=== PATIENT | female | born 1930 | race Caucasian/White ===

== ENCOUNTER 2017-06-12 02:39 | Emergency (ER) | payer MEDICARE ==
[~2017-06-12] VITALS: Ht 154.9 cm; Wt 49.0 kg
[~2017-06-12 02:39] MED LIST: AC325T PO; ACET-789 PO; ACID1TAB5 PO; ALN10T PO; ATRV10T PO; Aspirin PO; CALC-656 PO; CALC-80 PO; CALC-913 PO; CALC600T12 PO; CYCL5TAB PO; Diphenhydramine Hcl IV; ENXP30I.3 SC; FENT-64 TD; FLUT16SP22; FNT50TD TD; GABA-486 PO; HYDR-3820 PO; MELO-198 PO; METH4TAB PO; METR500T21; METR500T21 PO; Multivitamins/Minerals Therap PO; NF-ROP5T PO; NITR-65 PO; ONDA2VIA IV; ONDA4TAB10; ONDA4TAB11 PO; ONDAN4ODT PO; ORPH100T PO; Oxycodone Hcl/Acetaminophen PO; PANT40TA2 PO; PANT40TA3 PO; PRD10T PO; PROP40TA5 PO; ROPI1TAB PO; ROPI3TAB PO; ROPI5TAB; ROPI5TAB PO; SENN1TAB76 PO; SUCR1TAB36 PO; SULF1TAB35 PO; Sodium Chloride IV; TIMO1DRO4 OP; TIMO5DRO5 OP; TIMO5DRO5 OU; TIZA2CAP9 PO; TRAM50TA2 PO; TRM50T PO
[2017-06-12 02:55] LABS: BASOPHILS % (AUTO) 1 % (0-10); EOSINOPHILS # (AUTO) 0.4 10^3/uL (0.0-0.3); EOSINOPHILS % (AUTO) 5 % (0-10); LYMPHOCYTES # (AUTO) 2.2 X 10^3 (1.0-4.0); LYMPHOCYTES % (AUTO) 33 % (12-44); MEAN CORPUSCULAR HEMOGLOBIN 29 PG (25-34); MEAN CORPUSCULAR HGB CONC 34 G/DL (32-36); MEAN CORPUSCULAR VOLUME 86 FL (80-99); MEAN PLATELET VOLUME 8.9 FL (7.4-10.4); MONOCYTES # (AUTO) 0.9 X 10^3 (0.0-1.0); MONOCYTES % (AUTO) 13 % (0-12); NEUTROPHILS # (AUTO) 3.3 X 10^3 (1.8-7.8); NEUTROPHILS % (AUTO) 49 % (42-75); PLATELET COUNT 306 10^3/uL (130-400); RED BLOOD COUNT 4.12 10^6/uL (4.35-5.85); RED CELL DISTRIBUTION WIDTH 13.2 % (10.0-14.5); WHITE BLOOD COUNT 6.8 10^3/uL (4.3-11.0)
[2017-06-12] MEDS ORDERED: ORPHENADRINE 60 MG/2 ML (NORFLEX) AMP IVP ONE (03:00)
[2017-06-12] MEDS ORDERED: ORPHENADRINE 60 MG/2 ML (NORFLEX) AMP IM ONE (03:00)
[2017-06-12] MEDS ORDERED: KETOROLAC 30 MG/ML VIAL IVP ONE (03:00)
[2017-06-12 03:11] LABS: ANION GAP 11 MMOL/L (5-14); BLOOD UREA NITROGEN 10 MG/DL (7-18); BUN/CREATININE RATIO 13; CALCIUM 9.1 MG/DL (8.5-10.1); CARBON DIOXIDE 22 MMOL/L (21-32); CHLORIDE 105 MMOL/L (98-107); GFR ESTIMATED > 60; GLUCOSE 98 MG/DL (70-105); POTASSIUM 3.8 MMOL/L (3.6-5.0); SODIUM 138 MMOL/L (135-145)
[2017-06-12] MEDS ORDERED: CYCL5TAB PO (03:28)
--- NOTE | 2017-06-12 03:29 | ED Headache ---
General Chief Complaint: Head/Cervical Problems Stated Complaint: HEADACHE Nursing Triage Note: pt reports she woke up with severe head et neck pain. she was unable to bear the pain. Nursing Sepsis Screen: No Definite Risk Source: patient, EMS Exam Limitations: no limitations Allergies and Home Medications Allergies Coded Allergies: No Known Drug Allergies (Unverified , 05/05/16) Home Medications Fentanyl 1 Each Patch.td72, 25 MCG TD Q72H, #10 Prescribed by: NEY JARAMILLO on 07/02/16 1124 Pantoprazole Sodium 40 Mg Tablet.dr, 40 MG PO DAILY, (Reported) Propranolol HCl 40 Mg Tablet, 40 MG PO DAILY, (Reported) Ropinirole HCl 5 Mg Tablet, 5 MG PO QID, (Reported) Timolol Maleate 5 Ml Drops, 1 DROP OU BID, (Reported) Past Pvbamcu-Ttarwz-Ealmze Hx Patient Social History Alcohol Use: Occasionally Uses Alcohol Beverage of Choice: Wine Recreational Drug Use: No Smoking Status: Never a Smoker Recent Foreign Travel: No Contact w/Someone Who Travel: No Recent Infectious Disease Expo: No Recent Hopitalizations: Yes Physical Abuse: No Sexual Abuse: No Mistreated: No Fear: No Immunizations Up To Date Tetanus Booster (TDap): Unknown PED Vaccines UTD: Yes Date of Pneumonia Vaccine: Mar 27, 2011 Date of Influenza Vaccine: May 29, 2017 Seasonal Allergies Seasonal Allergies: No Surgeries History of Surgeries: Yes (BILAT ROTATOR CUFF REPAIR, TRIGGER FINGER RELEASE, RT KNEE) Surgeries: Joint Replacement Respiratory History of Respiratory Disorde: Yes Respiratory Disorders: Chronic Bronchitis Currently Using CPAP: No Currently Using BIPAP: No Cardiovascular History of Cardiac Disorders: Yes (TAKES PROPRANOLOL FOR PARKINSONS) Cardiac Disorders: Chronic Edema/Swelling, High Cholesterol Neurological History of Neurological Disord: Yes (POST-POLIO SYNDROME WITH LT SIDED WEAKNESS ) Neurological Disorders: Parkinson's Disease Reproductive System Hx Reproductive Disorders: No Sexually Transmitted Disease: No HIV/AIDS: No Female Reproductive Disorders: Denies Genitourinary Genitourinary Disorders: Bladder Infection Gastrointestinal History of Gastrointestinal Di: No Gastrointestinal Disorders: Gastroesophageal Reflux Musculoskeletal History of Musculoskeletal Dis: Yes (SPINAL STENOSIS) Musculoskeletal Disorders: Degenerate Disk Disease, Osteoporosis, Arthritis, Scoliosis, Chronic Back Pain Endocrine History of Endocrine Disorders: No HEENT HEENT Disorders: Cataract, Glaucoma Loss of Vision: Bilateral Hearing Impairment: Denies Cancer History of Cancer: No Psychosocial History of Psychiatric Problem: Yes Behavioral Health Disorders: Depression Suicide Risk Score: 0 Integumentary History of Skin or Integumenta: No Skin/Integumentary Disorders: Recent Skin Changes Blood Transfusions History of Blood Disorders: No (HX ANEMIA) Adverse Reaction to a Blood Tr: No (N/A) Family Medical History Significant Family History: No Pertinent Family Hx Family Medial History: Osteoporosis 19 MOTHER Physical Exam Vital Signs Vital Sign - Last 12Hours 06/12/17 02:43 Temp 98.4 Pulse 75 Resp 16 B/P (MAP) 196/98 Capillary Refill : Less Than 3 Seconds Progress/Results/Core Measures Results/Orders Lab Results Laboratory Tests Test 06/12/17 02:49 Range/Units White Blood Count 6.8 4.3-11.0 10^3/uL Red Blood Count 4.12 L 4.35-5.85 10^6/uL Hemoglobin 12.1 11.5-16.0 G/DL Hematocrit 35 35-52 % Mean Corpuscular Volume 86 80-99 FL Mean Corpuscular Hemoglobin 29 25-34 PG Mean Corpuscular Hemoglobin Concent 34 32-36 G/DL Red Cell Distribution Width 13.2 10.0-14.5 % Platelet Count 306 130-400 10^3/uL Mean Platelet Volume 8.9 7.4-10.4 FL Neutrophils (%) (Auto) 49 42-75 % Lymphocytes (%) (Auto) 33 12-44 % Monocytes (%) (Auto) 13 H 0-12 % Eosinophils (%) (Auto) 5 0-10 % Basophils (%) (Auto) 1 0-10 % Neutrophils # (Auto) 3.3 1.8-7.8 X 10^3 Lymphocytes # (Auto) 2.2 1.0-4.0 X 10^3 Monocytes # (Auto) 0.9 0.0-1.0 X 10^3 Eosinophils # (Auto) 0.4 H 0.0-0.3 10^3/uL Basophils # (Auto) 0.0 0.0-0.1 10^3/uL Sodium Level 138 135-145 MMOL/L Potassium Level 3.8 3.6-5.0 MMOL/L Chloride Level 105 98-107 MMOL/L Carbon Dioxide Level 22 21-32 MMOL/L Anion Gap 11 5-14 MMOL/L Blood Urea Nitrogen 10 7-18 MG/DL Creatinine 0.80 0.60-1.30 MG/DL Estimat Glomerular Filtration Rate > 60 BUN/Creatinine Ratio 13 Glucose Level 98 70-105 MG/DL Calcium Level 9.1 8.5-10.1 MG/DL My Orders Orders - SHAYAN DHALIWAL MD Ketorolac Injection (Toradol Injection) (06/12/17 03:00) Orphenadrine Injection (Norflex Injectio (06/12/17 03:00) Basic Metabolic Panel (06/12/17 02:46) Cbc With Automated Diff (06/12/17 02:46) Orphenadrine Injection (Norflex Injectio (06/12/17 03:00) Saline Lock/Iv-Start (06/12/17 03:21) Medications Given in ED Current Medications Medications Dose Ordered Sig/Uday Route Start Time Stop Time Status Last Admin Dose Admin Ketorolac Tromethamine 30 mg ONCE ONCE IVP 06/12/17 03:00 06/12/17 03:01 DC 06/12/17 03:00 30 MG Orphenadrine Citrate 60 mg ONCE ONCE IVP 06/12/17 03:00 06/12/17 03:01 DC 06/12/17 03:00 60 MG Vital Signs/I&O Vital Sign - Last 12Hours 06/12/17 02:43 Temp 98.4 Pulse 75 Resp 16 B/P (MAP) 196/98 Blood Pressure Mean: 130 Departure Impression Impression: Primary Impression: Muscle spasms of neck Disposition: 01 HOME, SELF-CARE Condition: Improved Departure-Patient Inst. Decision time for Depature: 03:25 Referrals: VICKIE AYALA MD (PCP/Family) Primary Care Physician Patient Instructions: Muscle Spasms (DC) Add. Discharge Instructions: You may take ibuprofen up to 400 mg 3 times daily for pain. Add Tylenol ( acetaminophen) up to 650 mg every 6 hours as needed for additional pain relief. You may use cyclobenzaprine (muscle relaxer) as prescribed for spasms. Use with caution as it may cause drowsiness. Return to care if symptoms worsen or return to your primary care provider if not improving as expected. Gentle heat on your neck may be helpful in relaxing your spasmed muscles. All discharge instructions reviewed with patient and/or family. Voiced understanding. Scripts Cyclobenzaprine HCl (Cyclobenzaprine HCl) 5 Mg Tablet 5 MG PO TIDAC, #10 TAB Prov: SHAYAN DHALIWAL MD 06/12/17 SHAYAN DHALIWAL MD Jun 12, 2017 03:29
[2017-06-12 04:09] VITALS: BP 150/81
== END 2017-06-12 04:07 | disposition home or self-care (01) ==
LOC: EDUNIT# 02:39 → ER 02:42
DX: M62.838 Other muscle spasm (principal); F32.9 Major depressive disorder, single episode, unspecified; M48.00 Spinal stenosis, site unspecified; K21.9 Gastro-esophageal reflux disease without esophagitis; G25.81 Restless legs syndrome; E78.00 Pure hypercholesterolemia, unspecified
CPT/HCPCS: 36415; 80048; 85025

== ENCOUNTER 2017-09-25 08:28 | Outpatient (CLI) | payer MEDICARE ==
[~2017-09-25] VITALS: Ht 154.9 cm; Wt 44.5 kg
[2017-09-25] MEDS ORDERED: CALC600T12 PO (08:41)
[2017-09-25] MEDS ORDERED: FENT1PAT8 TD (08:41)
[2017-09-25 08:46] VITALS: BP 141/69
--- NOTE | 2017-09-25 10:04 | Diagnostic Imaging Report ---
INDICATION: Preop for vaginal prolapse surgery. TIME OF EXAM: 9:26 AM COMPARISON: Correlation is made with prior study 07/01/2016. FINDINGS: There is right convexity scoliotic curvature to the lower thoracic and upper lumbar spine. The heart size is stable. The lungs are clear. No infiltrates are identified. No effusion or pneumothorax is seen. Suture anchor overlies the right humeral heads from prior rotator cuff surgery. IMPRESSION: No acute cardiopulmonary process is detected. Dictated by: Dictated on workstation # [id number]
== END 2017-09-25 10:58 ==
LOC: PREOP 08:28
PROVIDERS: ATTEND Obstetrics & Gynecology
DX: Z01.811 Encounter for preprocedural respiratory examination (principal); Z01.810 Encounter for preprocedural cardiovascular examination; Z01.818 Encounter for other preprocedural examination; Z11.2 Encounter for screening for other bacterial diseases; N81.2 Incomplete uterovaginal prolapse
CPT/HCPCS: 71046; 87081

== ENCOUNTER 2017-09-29 07:00 | Day surgery (SDC) | payer MEDICARE ==
[~2017-09-29] VITALS: Ht 154.9 cm; Wt 44.5 kg
[~2017-09-29 07:00] MED LIST changes: +FENT1PAT8 TD
[2017-09-29] MEDS ORDERED: ESTROGENS CONJ. CREAM 30 GM (PREMARIN) TUBE ONE (07:41)
[2017-09-29] MEDS ORDERED: BUPIVACAINE 0.25% 30 ML (SENSORCAINE) VIAL ONE (07:41)
[2017-09-29] MEDS ORDERED: VASOPRESSIN INJECTION 20 UNIT/ML VIAL ONE ×2 (07:42→07:57)
[2017-09-29] MEDS ORDERED: ceFAZolin 1,000 MG (ANCEF) VIAL ONE (07:49)
[2017-09-29] MEDS ORDERED: NS (IVPB) 100 ML ONE ×2 (07:49→07:57)
[2017-09-29] MEDS ORDERED: metroNIDAZOLE 500MG/100ML IVPB 100 ML ONE (07:49)
[2017-09-29] MEDS ORDERED: metroNIDAZOLE 500 MG/100 ML IVPB (PRE-MIX) IV ONE (08:00)
[2017-09-29] MEDS ORDERED: ceFAZolin 1 GM/NS 100 ML IVPB IV ONE ×2 (08:00)
[2017-09-29] MEDS ORDERED: fentaNYL INJECTION 100 MCG/2 ML AMP ONE (08:09)
[2017-09-29] MEDS ORDERED: SEVOFLURANE (ULTANE) 15 ML INHAL SOLN ONE ×4 (08:09→09:47)
[2017-09-29] MEDS ORDERED: proPOfol 200 MG/20 ML (DIPRIVAN) VIAL IV ONE (08:09)
[2017-09-29] MEDS ORDERED: LIDOCAINE PF 2% 5 ML (XYLOCAINE) VIAL ONE (08:09)
--- NOTE | 2017-09-29 08:15 | Progress Note-Pre Operative ---
Pre-Operative Progress Note H&P Reviewed The H&P was reviewed, patient examined and no changes noted. Date Seen by Provider: Sep 29, 2017 Time Seen by Provider: 08:00 Date H&P Reviewed: Sep 29, 2017 Time H&P Reviewed: 07:50 Pre-Operative Diagnosis: inc. uterovaginal prolapse, failed conservative treatment TESSIE MILLARD DO Sep 29, 2017 08:15
[2017-09-29] MEDS ORDERED: BUP/EPI 0.5% 1:200,000 (SENSORCAINE) 30 ML VIAL ONE (08:23)
[2017-09-29] MEDS: LACTATED RINGERS 1,000 ML IV PRN ×2 (08:39→10:49)
[2017-09-29] MEDS ORDERED: ceFAZolin INJECTION 1,000 MG in NS (IVPB) 100 ML IV ONE (08:45)
[2017-09-29] MEDS ORDERED: metroNIDAZOLE 500MG/100ML IVPB 100 ML IV ONE (08:45)
[2017-09-29 08:48] VITALS: BP 164/73
[2017-09-29] MEDS ORDERED: ONDANSETRON 4 MG/2 ML (SDV) Z0FRAN ONE (09:42)
[2017-09-29] MEDS ORDERED: DEXAMETHASONE 10 MG/ML (DECADRON) 1 ML VIAL ONE (09:42)
[2017-09-29] MEDS ORDERED: KETOROLAC 30 MG/ML VIAL ONE ×2 (09:42→09:43)
[2017-09-29] MEDS ORDERED: KETOROLAC 15 MG/ML VIAL IVP PRN (09:45)
[2017-09-29] MEDS: KETOROLAC 15 MG/ML VIAL IV SCH ×2 (09:45→16:09)
[2017-09-29] MEDS ORDERED: BENZOCAINE/MENTHOL (DERMOPLAST) 56 ML CAN TP PRN (09:45)
[2017-09-29] MEDS ORDERED: morphine INJ 10 MG/ML 1ML (SYR OR VIAL) IV PRN (09:45)
[2017-09-29] MEDS ORDERED: ONDANSETRON 4 MG/2 ML (SDV) Z0FRAN IV PRN (09:45)
--- NOTE | 2017-09-29 09:46 | Operative Report ---
Operative Report Date of Procedure/Surgery Sep 29, 2017 Surgeon (s) TESSIE MILLARD DO Brake Adjuster (s): None Post-Operative Diagnosis same Procedure Performed partial lafort colpocleisis, perineorrhaphy Solyx PV sling Description of Procedure Anesthesia Type: General (LMA) Estimated blood loss (mL): minimal Specimen(s) collected/removed none sent for pathology Description of the Procedure The patient is placed in the dorsal lithotomy position and carefully examined under anesthesia, and prepped and draped int he usual sterile fashion. The Lonestar retractor was placed and sutured into place. The anterior vaginal epithelium was grasped in the midline with an Allis clamp. The anterior vaginal epithelium was injected with dilute vasopressin. A 1 cm incision was made in the suburethral space with a scalpel about 1.5 cm from the urethral meatus. I dissected bilaterally to the obturator membranes and then inserted the Solyx bilaterally and then tightened under the midurethra. I did a cystoscopy which was negative. There was bilateral urethral efflux of urine. I then kept 300 ml in the bladder and did a Cred. There was minimal leakage. The sling laid gently under the urethra and was not too tight. There was no intravesicular pathology. The incision was closed with 4-0 Monocryl in a running fashion. The cervix is grasped with two sharp toothed tenaculum and prolapsed from the vagina. The anterior vaginal epithelium was marked (a rectangular portion) and then injected with dilute vasopressin and incised with a scalpel. This was then undermined with Metzenbaum scissors and excised. . In a similar manner, a marking pen was used to outline the posterior vaginal mucosa. With a scalpel, the posterior vaginal mucosa is incised transversely at its junction with the cervix. The Metzenbaum scissors are inserted underneath the posterior vaginal mucosa and on top of the perirectal fascia, and the vaginal mucosa is freed to the lateral margins of the marked area. The posterior vaginal mucosa is then cut along the prescribed marking lines with the Bovie scissors and removed. The the pubovesical cervical fascia was progressively plicated anteriorly and the perirectal fascia posteriorly with Lembert inverting sutures of 2-0 Vicryl. When this suture is tied, a tunnel is created along each lateral margin for drainage of cervical mucus, thereby preventing the formation of mucocele. Several sutures are placed in a similar manner to complete the tunnel. 2-0 Vicryl sutures are placed from the pubovesical cervical fascia anteriorly to the perirectal fascia posteriorly over the portio of the cervix. After several of these sutures have been placed, the portio of the cervix was inverted. The vaginal vault is now 3 cm x 3 cm. A perineorrhaphy was now done. I injected the perineum with dilute vasopressin and then incised the perineum with a scalpel and removed a pyramidal section I then plicated the perineum with interrupted 2-0 Vicryl and then closed with 3-0 Vicryl in a running locked fashion. Estrogen cream was placed. Westbrook catheter was placed. Findings of the Procedure incomplete uterovaginal prolapse, gapy introitus, relaxed perineum Allergies and Home Medications Allergies Coded Allergies: No Known Drug Allergies (Unverified , 09/25/17) Home Medications Calcium Carbonate 600 Mg Tablet, 600 MG PO DAILY, (Reported) Fentanyl 12 Mcg Patch, 12 MCG TD Q72H, (Reported) Pantoprazole Sodium 40 Mg Tablet.dr, 40 MG PO DAILY, (Reported) Propranolol HCl 40 Mg Tablet, 20 MG PO DAILY, (Reported) TAKES 1/2 (40MG) TABLET Ropinirole HCl 5 Mg Tablet, 5 MG PO QID, (Reported) Timolol Maleate 5 Ml Drops, 1 DROP OU BID, (Reported) Patient Home Medication List Home Medication List Reviewed: Yes TESSIE MILLARD DO Sep 29, 2017 09:46
[2017-09-29] MEDS ORDERED: ONDANSETRON 4 MG/2 ML (SDV) Z0FRAN IVP PRN (10:00)
[2017-09-29] MEDS ORDERED: ACETAMINOPHEN 500 MG TAB (TYLENOL) PO PRN (10:00)
[2017-09-29] MEDS ORDERED: PATIENT MAY USE OWN MEDS, ALL MC SCH (10:00)
[2017-09-29] MEDS: morphine INJ 10 MG/ML 1ML (SYR OR VIAL) IVP PRN ×3 (10:08→10:20)
[2017-09-29] MEDS ORDERED: HYDROmorphone (DILAUDID) 2 MG/ML VIAL ONE (10:31)
--- NOTE | 2017-09-29 10:40 | Anesthesia-General Post-Op ---
General Patient Condition Mental Status/LOC: Same as Preop Cardiovascular: Satisfactory Nausea/Vomiting: Absent Respiratory: Satisfactory Pain: Controlled Complications: Absent Post Op Complications Complications None Follow Up Care/Instructions Patient Instructions None needed. Anesthesia/Patient Condition Patient Condition Patient is doing well, no complaints, stable vital signs, no apparent adverse anesthesia problems. No complications reported per nursing. [place] [facility]: No RODOLFO GOETZ CRNA Sep 29, 2017 10:40
[2017-09-29] MEDS ORDERED: HYDROmorphone (DILAUDID) 2 MG/ML VIAL IVP PRN (10:45)
[2017-09-29] MEDS ORDERED: fentaNYL PATCH 25 MCG (DURAGESIC) TD SCH (11:15)
[2017-09-29 11:20] VITALS: BP 140/106
[2017-09-29] MEDS: D5 LR IV SOLUTION 1,000 ML IV SCH ×2 (11:35→19:29)
[2017-09-29] MEDS ORDERED: FEN12TD TD (12:26)
[2017-09-29] MEDS ORDERED: fentaNYL PATCH 12 MCG (DURAGESIC) TD SCH (12:45)
[2017-09-29] MEDS: PROPRANOLOL 40 MG TABLET PO SCH (13:43)
[2017-09-29] MEDS: TIMOLOL MALEATE 0.5% 5 ML (TIMOPTIC) BTL OU SCH (13:43)
[2017-09-29] MEDS: ROPINIROLE HCL 5 MG PO SCH ×2 (13:43→19:24)
[2017-09-29 16:11] VITALS: BP 151/73
[2017-09-29 19:20] VITALS: BP 97/51
[2017-09-29] MEDS ORDERED: PROPRANOLOL 40 MG TABLET PO SCH (21:00)
[2017-09-30] VITALS: BP 114/57
[2017-09-30] MEDS: KETOROLAC 15 MG/ML VIAL IV SCH ×2 (00:08→05:41)
[2017-09-30] MEDS: D5 LR IV SOLUTION 1,000 ML IV SCH (03:32)
[2017-09-30 05:50] VITALS: BP 139/64
[2017-09-30 08:35] VITALS: BP 147/75
[2017-09-30] MEDS ORDERED: DOCUSATE SODIUM 100 MG (COLACE) CAP PO SCH (09:00)
--- NOTE | 2017-09-30 09:02 | Discharge Inst-Women's Service ---
Discharge Inst-Women's Serv Depart Medication/Instructions New, Converted or Re-Newed RX: Other (May use tylenol for pain with the fentanyl patch. No additional meds given.) Final Diagnosis incomplete uterovaginal prolapse Consults/Follow Up Additional Follow Up: Yes (1 week and 6 weeks) Activity Activity: Activity as Tolerated Driving Instructions: No Driving for 1 Week Nothing Inside Vagina: No Douching, No [place], No Tampons Other Activity nothing in the vagina no lifting over 25 lbs keep stools soft. Diet Discharge Diet: No Restrictions Symptoms to Report to DrPankaj: Bleeding Excessive, Pain Increased, Fever Over 101 Degrees F, Vaginal Bleeding Increase, Vaginal Discharge Foul expect some light bleeding/spotting for up to 2 weeks may have increase in discharge for same period For Any Problems or Questions: Contact Your Physician Skin/Wound Care Infection Signs and Symptoms: Increased Redness, Foul Odor of Wound, Increased Drainage, Skin Itchy or Has a Rash, Increased Swelling, Temperature Above 101 F Bathing Instructions: TESSIE Newberry DO Sep 30, 2017 09:02
[2017-09-30] MEDS: TIMOLOL MALEATE 0.5% 5 ML (TIMOPTIC) BTL OU SCH (09:12)
[2017-09-30] MEDS: PROPRANOLOL 40 MG TABLET PO SCH (09:14)
[2017-09-30] MEDS: ROPINIROLE HCL 5 MG PO SCH (09:17)
[2017-09-30 10:30] VITALS: BP 147/75
--- NOTE | 2017-09-30 14:32 | Anesthesia-General Post-Op ---
General Patient Condition Mental Status/LOC: Same as Preop Cardiovascular: Satisfactory Nausea/Vomiting: Absent Respiratory: Satisfactory Pain: Controlled Complications: Absent Post Op Complications Complications None Follow Up Care/Instructions Patient Instructions None needed. Anesthesia/Patient Condition Patient Condition Patient is doing well, no complaints, stable vital signs, no apparent adverse anesthesia problems. No complications reported per nursing. D/C home per [facility] [place] Criteria: DELLA Montalvo CRNA Sep 30, 2017 14:32
[2017-10-02] MEDS ORDERED: FENTANYL PATCH REMOVAL TP SCH (12:44)
== END 2017-09-30 10:30 | disposition home or self-care (01) ==
LOC: SDC 07:00 → EDSTATUS 09:00 → WS 11:25 → SDC 09-30 10:30
PROVIDERS: ATTEND Obstetrics & Gynecology
DX: N81.2 Incomplete uterovaginal prolapse (principal); R33.9 Retention of urine, unspecified; I10 Essential (primary) hypertension; J44.9 Chronic obstructive pulmonary disease, unspecified; M81.0 Age-related osteoporosis without current pathological fracture; G20 Parkinson's disease; K21.9 Gastro-esophageal reflux disease without esophagitis; G14 Postpolio syndrome; Z87.891 Personal history of nicotine dependence
CPT/HCPCS: 94664

== ENCOUNTER → 2018-10-26 | Outpatient (CLI) | payer MEDICARE ==
[~2018-10-26] MED LIST changes: +FEN12TD TD; +METR-145; +METR-145 PO; -METR500T21; -METR500T21 PO; -ROPI5TAB; -ROPI5TAB PO; +ROPI5TAB3; +ROPI5TAB3 PO
--- NOTE | 2018-10-26 11:49 | Diagnostic Imaging Report ---
INDICATION: Cyanosis right foot. Peripheral vascular disease. TECHNIQUE: Multiple real time pierson scale sonographic images along with duplex Doppler imaging was obtained of the right lower extremity system. CORRELATION STUDY: None FINDINGS: The major arteries of the right leg are patent to the level of the ankle at the posterior tibial and dorsalis pedis artery. There is no appreciable velocity change to suggest a focal area of stenosis. IMPRESSION: 1.Patent right lower extremity arterial system. No findings to suggest a significant large vessel occlusion or stenosis. Dictated by: Dictated on workstation # [id number]
== END ==
LOC: RAD 10:14
PROVIDERS: ATTEND Physician Assistant
DX: I73.9 Peripheral vascular disease, unspecified (principal); R23.0 Cyanosis
CPT/HCPCS: 93926

== ENCOUNTER → 2019-01-28 | Outpatient (CLI) | payer MEDICARE ==
[2019-01-28 17:21] LABS: CLARITY,URINE SLIGHTLY CLOUDY; COLOR,URINE AMBER; GLUCOSE, URINE (UA) NEGATIVE (NEGATIVE); KETONES,URINE 1+ (NEGATIVE); LEUKOCYTE ESTERASE ,URINE 3+ (NEGATIVE); NITRITE,URINE NEGATIVE (NEGATIVE); PH,URINE 5 (5-9); PROTEIN,URINE 2+ (NEGATIVE); UROBILINOGEN,URINE 4 MG/DL (NORMAL)
[2019-01-28 17:33] LABS: BACTERIA,URINE NEGATIVE /HPF; BILIRUBIN,URINE 1+ (NEGATIVE); RBC,URINE 0-2 /HPF; WBC,URINE 25-50 /HPF
== END ==
LOC: HH 17:16
PROVIDERS: ATTEND Internal Medicine
DX: N39.0 Urinary tract infection, site not specified (principal); G14 Postpolio syndrome; M41.80 Other forms of scoliosis, site unspecified; M47.816 Spondylosis without myelopathy or radiculopathy, lumbar region; M81.0 Age-related osteoporosis without current pathological fracture; E78.5 Hyperlipidemia, unspecified; G20 Parkinson's disease
CPT/HCPCS: 81000; 87088

== ENCOUNTER → 2019-02-02 | Outpatient (CLI) | payer MEDICARE | LOC: HH 15:00 | PROVIDERS: ATTEND Internal Medicine | DX: R19.7 Diarrhea, unspecified (principal) | CPT/HCPCS: 87449 ==

== ENCOUNTER → 2020-02-24 | Outpatient (CLI) | payer MEDICARE ==
[~2020-02-24] MED LIST changes: +ACHYD1T PO; -CALC600T12 PO; +CALC600T14 PO; -HYDR-3820 PO; +ONDA-105; -ONDA4TAB10
--- NOTE | 2020-02-24 09:39 | Diagnostic Imaging Report ---
PA chest and right ribs at 9:00 AM. Indication: Right rib pain with cough. The heart size is within normal limits and stable when compared to 09/25/2017. The lungs are clear. There is no evidence for pneumonia or for pleural effusion. There is no sign of a pneumothorax on the right either. The images of the right ribs fail to show any evidence for a displaced rib fracture. No other acute bony abnormality is noted. As seen on the prior exam there are orthopedic fixation screws overlying each humeral head. Impression: There is no evidence for acute cardiopulmonary or bony abnormality. Dictated by: Dictated on workstation # [id number]
== END ==
LOC: RAD 08:31
PROVIDERS: ATTEND Physician Assistant
DX: R07.81 Pleurodynia (principal); R05 Cough
CPT/HCPCS: 71101

== ENCOUNTER → 2021-01-17 | Outpatient (CLI) | payer MEDICARE ==
[~2021-01-17] MED LIST changes: -CALC600T14 PO; +CALC600T91 PO; -PANT40TA3 PO; +PANT40TA52 PO
--- NOTE | 2021-01-17 09:32 | Diagnostic Imaging Report ---
INDICATION: Right-sided neck pain. TIME OF EXAM: 8:53 AM. TECHNIQUE: AP, lateral, and odontoid views were obtained. FINDINGS: There is severe demineralization of the cervical spine, limiting evaluation. There is anterolisthesis of C4 on C5. Severe multilevel degenerative disc disease is noted with disc space narrowing and marginal spurring. The odontoid appears to be intact. There is multilevel facet arthropathy. IMPRESSION: Severe cervical spondylosis with minimal anterolisthesis. No acute bony abnormality is detected. Dictated by: Dictated on workstation # [id number]
== END ==
LOC: RAD 08:25
PROVIDERS: ATTEND Internal Medicine
DX: M47.812 Spondylosis without myelopathy or radiculopathy, cervical region (principal); M43.12 Spondylolisthesis, cervical region; Z91.81 History of falling
CPT/HCPCS: 72040

== ENCOUNTER 2021-03-11 23:17 | Emergency (ER) | payer MEDICARE ==
[~2021-03-11] VITALS: Ht 154 cm; Wt 56.8 kg
[~2021-03-11 23:17] MED LIST changes: -SULF1TAB35 PO; +SULF1TAB38 PO
[2021-03-11] MEDS ORDERED: LIDOCAINE 1% INJ 20 ML 20 ML VIAL INJ ONE (23:30)
--- NOTE | 2021-03-11 23:37 | ED Head Injury ---
General Chief Complaint: Trauma-Non Activation Stated Complaint: FALL Nursing Triage Note: FALL FROM STANDING POSITION Source: patient Exam Limitations: no limitations History of Present Illness Date Seen by Provider: Mar 11, 2021 Time Seen by Provider: 23:25 Initial Comments Patient is an 89-year-old female who lives alone, on hospice who presents to the emergency department today with a chief complaint of left temporal head laceration after a mechanical trip and fall in the bathroom. Patient states that she slipped and fell in the bathroom hitting her head on the bathtub. No loss of consciousness is reported. Patient is not nauseous. She has chronic cervical spine pain. She was placed in a rigid c-collar. She states her pain is no different than her chronic pain. She denies any numbness, tingling or weakness in her upper or lower extremities. 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 No complaints of recent illness. No fevers chills, cough or congestion. Hospice care nurses of aware of her visit to the emergency department. All other review of systems reviewed and negative except as stated above. Occurred: just prior to arrival Severity: mild Location: temporal Method of Injury: fell Loss of Consciousness: no loss of consciousness Associated Systoms: Denies Symptoms Allergies and Home Medications Allergies Coded Allergies: No Known Drug Allergies (Unverified , 09/25/17) Home Medications Calcium Carbonate 600 Mg Tablet, 600 MG PO DAILY, (Reported) Fentanyl 12 Mcg Patch, 12 MCG TD Q72H, (Reported) Pantoprazole Sodium 40 Mg Tablet.dr, 40 MG PO DAILY, (Reported) Propranolol HCl 40 Mg Tablet, 20 MG PO DAILY, (Reported) TAKES 1/2 (40MG) TABLET Ropinirole HCl 5 Mg Tablet, 5 MG PO QID, (Reported) Timolol Maleate 5 Ml Drops, 1 DROP OU BID, (Reported) Patient Home Medication List Home Medication List Reviewed: Yes Review of Systems Review of Systems Constitutional: see HPI Eyes: No Symptoms Reported Ears, Nose, Mouth, Throat: no symptoms reported Respiratory: no symptoms reported Cardiovascular: no symptoms reported Gastrointestinal: no symptoms reported Genitourinary: no symptoms reported Musculoskeletal: neck pain Skin: other (laceration) Endocrine: No Symptoms Reported All Other Systems Reviewed Negative Unless Noted: Yes Past Sxlmhyk-Pvkhuw-Deqxvr Hx Immunizations Up To Date Tetanus Booster (TDap): Unknown PED Vaccines UTD: Yes Seasonal Allergies Seasonal Allergies: No Past Medical History Surgeries: Yes (BILAT ROTATOR CUFF REPAIR, TRIGGER FINGER RELEASE, RT KNEE) Joint Replacement Respiratory: Yes Chronic Bronchitis Currently Using CPAP: No Currently Using BIPAP: No Cardiac: Yes (TAKES PROPRANOLOL FOR PARKINSONS) Chronic Edema/Swelling, High Cholesterol Neurological: Yes (POST-POLIO SYNDROME WITH LT SIDED WEAKNESS) Parkinson's Disease Reproductive Disorders: Yes (VAGINAL PROLAPSE) Female Reproductive Disorders: Denies Sexually Transmitted Disease: No HIV/AIDS: No UTI-Chronic Gastrointestinal: No Gastroesophageal Reflux Musculoskeletal: Yes (SPINAL STENOSIS) Degenerate Disk Disease, Osteoporosis, Arthritis, Scoliosis, Chronic Back Pain Endocrine: No Glaucoma Loss of Vision: Bilateral Hearing Impairment: Denies Cancer: No Psychosocial: Yes Depression Integumentary: No Recent Skin Changes Blood Disorders: No (HX ANEMIA) Adverse Reaction/Blood Tranf: No (HAS HAD BLOOD WITH NO REACTION) Family Medical History Osteoporosis 19 MOTHER No Pertinent Family Hx Physical Exam Vital Signs Vital Signs - First Documented 03/11/21 23:18 Temp 36.9 Pulse 75 Resp 20 B/P (MAP) 170/73 (105) Pulse Ox 95 O2 Delivery Room Air Capillary Refill : Height, Weight, BMI Height: 5'1.00" Weight: 98lbs. 0.0oz. 44.522435iy; 18.5 BMI Method:Stated General Appearance: WD/WN, no apparent distress HEENT: PERRL/EOMI Neck: non-tender, full range of motion, supple, normal inspection Cardiovascular: regular rate, rhythm Respiratory: lungs clear, normal breath sounds, no respiratory distress, no accessory muscle use Gastrointestinal: non tender, soft Extremities: normal range of motion, non-tender, normal inspection, no calf tenderness, pedal edema (trace) Psychiatric: alert, oriented x 3 Crainal Nerves: normal hearing, normal speech, PERRL Motor/Sensory: no motor deficit, no sensory deficit Skin: normal color, warm/dry, other (1-1/2 cm laceration to the upper left catholic, no active bleeding is noted.) [place] Coma Score Best Eye Response: (4) Open Spontaneously Best Verbal Response: (5) Oriented Best Motor Response: (6) Obeys Commands Procedures/Interventions Wound Location: Face Other Wound Location left temporal scalp Wound Length (cm): 1.5 Wound's Depth, Shape: superficial, linear Wound Explored: clean Irrigated w/ Saline (ccs): 150 Anesthesia: 1% Lidocaine Volume Anesthetic (ccs): 2 Suture: Ethlion Suture Size: 5-0 Number of Sutures: 4 Layer Closure?: 1 Sterile Dressing Applied?: No Progress/Results/Core Measures Results/Orders My Orders Orders - NICOLA JIMÉNEZ MD Ct Head/Cervical Spine Wo (03/11/21 23:30) Lidocaine 1% Inj 20 Ml (Xylocaine 1% Inj (03/11/21 23:30) Medications Given in ED Current Medications Medications Dose Ordered Sig/Uday Route Start Time Stop Time Status Last Admin Dose Admin Lidocaine HCl 20 ml ONCE ONCE INJ 03/11/21 23:30 03/11/21 23:31 DC 03/11/21 23:37 20 ML Vital Signs/I&O 03/11/21 23:18 Temp 36.9 Pulse 75 Resp 20 B/P (MAP) 170/73 (105) Pulse Ox 95 O2 Delivery Room Air Progress Progress Note : Time: 00:[address] scan of the head and cervical spine were without any acute abnormalities. She remains alert and perky. Wounds were closed with 5-0 Ethilon times 4 sutures. Good hemostasis was achieved. Wound approximated very well. Patient is discharged home with wound care instructions and head injury precautions. Her son verbalizes understanding. All questions are sought and answered. Patient is stable for discharge. Diagnostic Imaging Diagonstic Imaging: CT Plain Films/CT/US/NM/MRI: c-spine, head Comments [facility], [place] NAME: LONNIEFRANK Morocho [facility] REC#: [id number] PT STATUS: REG ER : 1930 PHYSICIAN: NICOLA JIMÉNEZ MD ADMIT DATE: 03/11/21/ER Signed Date of Exam:03/11/21 CT HEAD/CERVICAL SPINE WO PROCEDURE: CT head and CT cervical spine without contrast. TECHNIQUE: Multiple contiguous axial images were obtained through the brain and cervical spine without the use of intravenous contrast. Sagittal and coronal reformations through the cervical spine were then performed. Auto Exposure Controls were utilized during the CT exam to meet ALARA standards for radiation dose reduction. INDICATION: Head injury from a fall CT HEAD: There is chronic opacification of the right maxillary sinus. The ventricles are normal in size, shape and position. There are no masses or hemorrhages. There are no extra-axial fluid collections. IMPRESSION: No acute abnormality seen in head CT cervical spine: Vertebral body height and alignment appear normal. There are degenerative disc changes C4-C5 and C6-C7. There are some degenerative changes of the uncovertebral joints at C3-C4 and C4-C5. There is no fracture or prevertebral soft tissue swelling. 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 No acute abnormality seen. Dictated by: Dictated on workstation # [id number] Dict: 03/11/[id number] Trans: 03/11/212354 TCB [id number] Interpreted by: LEYDI ANDINO MD Electronically signed by: LEYDI ANDINO MD 03/11/212354 Departure Impression Primary Impression: Scalp laceration Qualified Codes: S01.01XA - Laceration without foreign body of scalp, initial encounter Additional Impression: Closed head injury Qualified Codes: S09.90XA - Unspecified injury of head, initial encounter Disposition: 01 HOME, SELF-CARE Condition: Stable Departure-Patient Inst. Decision time for Depature: 23:36 Referrals: VICKIE AYALA MD (PCP/Family) Primary Care Physician Patient Instructions: Laceration Repair With Stitches (DC), Minor Head Injury, Adult ED Add. Discharge Instructions: Keep the stitches in place for the next 5-7 days. Your hospice nurse can take these out once the wound is healed in 5-7 days. Keep the wound clean dry and covered for the first 2 days. Tylenol as needed for headache pain. Continue your routine daily medications. Come back to the emergency department for any new, concerning or emergent complaints, especially worsening headache, vomiting or change in mental status. NICOLA JIMÉNEZ MD Mar 11, 2021 23:37
--- NOTE | 2021-03-11 23:57 | Diagnostic Imaging Report ---
PROCEDURE: CT head and CT cervical spine without contrast. TECHNIQUE: Multiple contiguous axial images were obtained through the brain and cervical spine without the use of intravenous contrast. Sagittal and coronal reformations through the cervical spine were then performed. Auto Exposure Controls were utilized during the CT exam to meet ALARA standards for radiation dose reduction. INDICATION: Head injury from a fall CT HEAD: There is chronic opacification of the right maxillary sinus. The ventricles are normal in size, shape and position. There are no masses or hemorrhages. There are no extra-axial fluid collections. IMPRESSION: No acute abnormality seen in head CT cervical spine: Vertebral body height and alignment appear normal. There are degenerative disc changes C4-C5 and C6-C7. There are some degenerative changes of the uncovertebral joints at C3-C4 and C4-C5. There is no fracture or prevertebral soft tissue swelling. 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 No acute abnormality seen. Dictated by: Dictated on workstation # [id number]
[2021-03-12 00:36] VITALS: BP 150/63
== END 2021-03-12 00:36 | disposition home or self-care (01) ==
LOC: ER 23:17 → EDUNIT# 23:17 → ER 03-12 00:36
DX: S01.01XA Laceration without foreign body of scalp, initial encounter (principal); S09.90XA Unspecified injury of head, initial encounter; G20 Parkinson's disease; K21.9 Gastro-esophageal reflux disease without esophagitis; Z79.899 Other long term (current) drug therapy; W18.2XXA Fall in (into) shower or empty bathtub, initial encounter
CPT/HCPCS: 12011; 70450; 72125